=== PATIENT | female | born 1980 | race Caucasian/White ===

== ENCOUNTER 2017-02-04 10:57 | Emergency (ER) | payer BC, OTHER ==
[~2017-02-04] VITALS: Ht 149.9 cm; Wt 61.0 kg
[2017-02-04 11:04] VITALS: Ht 149.9 cm; Wt 61.0 kg
[2017-02-04] MEDS ORDERED: GUAI473L22 PO (11:22)
[2017-02-04] MEDS ORDERED: ALBU18HF INHALATION (11:22)
--- NOTE | 2017-02-04 11:31 | ERD ---
ER Documentation Chief Complaint Date/Time DATE: 02/04/17 TIME: 11:25 Chief Complaint COUGH X4 [place] HPI 36-year-old female complaining of productive cough 4 days. Patient reports yellow/green colored sputum. She felt tired, and has a subjective fever. Did not check her temperature at home. Took Advil for fever, last dose was 4 hours ago. She also took am[facility]. Denies headache or neck pain. Denies abdominal pain, nausea, vomiting, diarrhea. Denies night sweats or unexplained weight loss. Denies asthma, diabetes, hypertension, or any other medical history ROS All systems reviewed and are negative except as per history of present illness. Medications Home Meds Active Scripts Guaifenesin-Codeine Phosphate* (Guaifenesin* AC Cough Syrup) 473 Ml Liquid, 10 ML PO Q6 Y for COUGH, #120 ML Prov:KIM JORDAN. [employer] 02/04/17 Albuterol Sulfate* (Ventolin HFA*) 18 Gm Hfa.aer.ad, 2 PUFF INHALATION Q4H, #1 INHALER Prov:KIM JORDAN. [employer] 02/04/17 Allergies Allergies: Coded Allergies: No Known Drug Allergies (Verified Allergy, Unknown, 02/04/17) PMhx/Soc History of Surgery: Yes (C section) Anesthesia Reaction: No Hx Neurological Disorder: No Hx Respiratory Disorders: No Hx Cardiac Disorders: No Hx Psychiatric Problems: No Hx Miscellaneous Medical Probl: No Hx Alcohol Use: No Hx Substance Use: No Hx Tobacco Use: No Smoking Status: Never smoker Physical Exam Vitals Vital Signs Date Time Temp Pulse Resp B/P Pulse Ox O2 Delivery O2 Flow Rate FiO2 02/04/17 11:04 98.0 81 20 118/85 97 Physical Exam General: Well-developed, well-nourished, conscious and coherent, in no distress Skin: Warm and dry without rash, good texture and turgor Head: Normocephalic without evidence of trauma Eyes: Sclera and conjunctivae normal; pupils equal, round, and reactive to light; extraocular movements are intact Nose/Face: Nasal mucosa erythematous and swollen with clear nasal discharge. Mouth/throat: Mucous membranes are moist. Posterior pharynx clear without erythema or exudates Neck: Supple without meningismus or adenopathy. Carotids are equal. Trachea midline. No bruits or JVD Chest: Normal AP diameter. Good expansion without retractions. Nontender. Lungs are clear to auscultate bilaterally with good tidal volume Heart: Regular rate and rhythm. No murmur, rub, or gallops heard Abdomen: Soft and nontender without masses, guarding, or rebound. Bowel sounds are active. No hepatosplenomegaly Extremities: Full range of motion. Good strength bilaterally. No clubbing, cyanosis, or edema. Peripheral pulses are intact. Sensation intact Neuro: Alert and oriented 4, GCS 15. Cranial nerves grossly intact. Motor and sensory exams nonfocal. Moves all extremities. Speech clear. Gait normal Procedures/MDM Patient is afebrile, in no respiratory distress. Lungs are clear to auscultate. I doubt that patient has pneumonia or bronchitis, I doubt tuberculosis. Likely patient's symptoms are result of viral upper respiratory infection. Patient appears well, stable for discharge and outpatient management. Advised patient that amoxicillin will not help with viral infections. Medical decision making shared with patient and family. Education provided to patient and family. Patient and family expressed understanding of the plan. Medications on discharge: Albuterol HFA, guaifenesin with codeine. Follow-up: Primary care provider in 2-3 days or return to ED if worse. Departure Diagnosis: Primary Impression: URI (upper respiratory infection) URI type: acute nasopharyngitis (common cold) Qualified Code: J00 - Acute nasopharyngitis Condition: Good Patient Instructions: Adult Self-Care for Colds Additional Instructions: Call your primary care doctor TOMORROW for an appointment during the next 2-3 days.See the doctor sooner or return here if your condition worsens before your appointment time. KIM JORDAN NP Feb 04, 2017 11:30
== END 2017-02-04 11:34 | disposition home or self-care (01) ==
LOC: FTE 10:57
DX: J00 Acute nasopharyngitis [common cold] (principal)
CPT/HCPCS: 99283